=== PATIENT | female | born 1940 ===

== ENCOUNTER 2023-12-03 12:19 | Emergency (ER) | payer MEDICARE, BC ==
[2023-12-03 13:10] LABS: BASOPHILS ABSOLUTE AUTO 0.04 K/uL (0.00-0.20); BASOPHILS PERCENT AUTO 0.3 % (0.0-1.0); EOSINOPHILS ABSOLUTE AUTO 0.03 K/uL (0.00-0.45); EOSINOPHILS PERCENT AUTO 0.2 % (0.0-6.0); HEMATOCRIT 47.3 % (37.0-47.0); HEMOGLOBIN 16.2 g/dL (12.0-16.0); IMMATURE GRAN ABSOLUTE AUTO 0.04 K/uL (0.00-0.05); IMMATURE GRAN PERCENT AUTO 0.3 % (0.0-0.4); LYMPHOCYTES ABSOLUTE AUTO 0.96 K/uL (1.00-4.80); MEAN CORPUSCULAR HEMOGLOBIN 32.9 pg (28.0-32.0); MEAN CORPUSCULAR HGB CONC 34.2 g/dL (32.0-36.0); MEAN CORPUSCULAR VOLUME 96.1 fL (83.0-99.0); MEAN PLATELET VOLUME 8.5 fL (9.4-12.3); MONOCYTES ABSOLUTE AUTO 1.05 K/uL (0.00-0.80); MONOCYTES PERCENT AUTO 8.7 % (0.0-8.0); NEUTROPHILS ABSOLUTE AUTO 9.92 K/uL (1.80-7.70); NEUTROPHILS PERCENT AUTO 82.5 % (41.0-71.0); PLATELET COUNT,PLT 164 K/uL (150-400); RED BLOOD CELL COUNT 4.92 M/uL (4.10-5.30); WHITE BLOOD CELL COUNT,WBC 12.04 K/uL (3.9-11.3)
[2023-12-03] MEDS: Sodium Chloride 0.9% 500 ML IV STA (13:15)
[2023-12-03] MEDS: Sodium Chloride 0.9% 2.5 ML Syringe FLUSH PRN (13:15)
[2023-12-03] MEDS: Sodium Chloride 0.9% 10 ML Syringe FLUSH PRN (13:15)
[2023-12-03 13:30] LABS: INR 1.02 (0.86-1.11)
[2023-12-03 13:47] LABS: A/G RATIO 0.9 (0.9-1.6); ALANINE AMINOTRANSFERASE,ALT 102 IU/L (14-63); ALBUMIN 3.1 g/dL (3.4-5.0); ALKALINE PHOSPHATASE 146 U/L (46-116); ASPARTATE AMNIOTRANSFERASE,AST 98 IU/L (15-37); BILIRUBIN TOTAL 1.3 mg/dL (0.2-1.0); BLOOD UREA NITROGEN,BUN 13 mg/dL (7.0-18.0); CALCIUM 8.8 mg/dL (8.5-10.1); CARBON DIOXIDE,CO2 24.2 mmol/L (21.0-32.0); CHLORIDE,CL 98 mmol/L (98-107); EST CRCL DRUG DOSING (CG) 41.45 mL/min; GLUCOSE RANDOM 89 mg/dL (74-106); LIPASE 20 U/L (16-77); PROTEIN TOTAL,TP 6.5 g/dL (6.4-8.2); SODIUM,NA 132 mmol/L (136-145)
[2023-12-03 13:48] LABS: ESTIMATED GFR 56 mL/min (>60)
[2023-12-03] MEDS: Iopamidol 755 MG/ML 500 ML Multipack Bottle IVPUSH STA (14:15)
[2023-12-03 15:26] LABS: APPEARANCE,URINE CLEAR; BILIRUBIN,URINE NEGATIVE (NEGATIVE); COLOR,URINE YELLOW; GLUCOSE,URINE NEGATIVE (NEGATIVE); KETONES,URINE 15 mg/dL (NEGATIVE); NITRITE,URINE NEGATIVE (NEGATIVE); OCCULT BLOOD,URINE NEGATIVE (NEGATIVE); PROTEIN,URINE NEGATIVE (NEGATIVE); UROBILINOGEN,URINE 0.2 EU/dL (<2.0)
[2023-12-03 15:27] LABS: LEUKOCYTE ESTERASE,URINE TRACE (NEGATIVE)
[2023-12-03 15:41] LABS: BACTERIA,URINE RARE (NEGATIVE); EPITHELIAL CELLS,URINE FEW (NONE-FEW); MUCUS,URINE LIGHT (NONE-MOD); RBC,URINE NONE SEEN (0-2/HPF); WBC,URINE 0-1 (0-5/HPF)
[2023-12-03] MEDS: Piperacillin/Tazobactam 4.5 GM in Sodium Chloride 0.9% 100 ML IV STA (17:01)
[2023-12-03] MEDS: oxyCODONE 5 MG Tab PO STA (17:35)
[2023-12-03] MEDS: Ondansetron 4 MG/2 ML SDV IVPUSH STA (17:36)
[2023-12-03] MEDS: Acetaminophen 500 MG Tab PO STA (17:36)
[2023-12-03] MEDS: Ketorolac 30 MG/ML SDV IVPUSH STA (17:36)
== END 2023-12-03 19:31 ==
LOC: MW.ED 12:19
DX: K57.10 Diverticulosis of small intestine without perforation or abscess without bleeding (principal); K81.0 Acute cholecystitis; E80.7 Disorder of bilirubin metabolism, unspecified; R74.01 Elevation of levels of liver transaminase levels; Z75.8 Other problems related to medical facilities and other health care; Z79.899 Other long term (current) drug therapy
CPT/HCPCS: 36415; 74177; 76705; 80053; 81001; 83690; 83735; 84484; 85025; 85610; 87086; 93005; 96361; 96365; 96375; 99285; A9270; J1885; J2405; J2543; J3490; J7040; Q9967; 93010